=== PATIENT | male | born 1960 | race Caucasian/White ===

== ENCOUNTER → 2022-04-23 | Day surgery (SDC) | payer OTHER ==
[~2022-04-23] MED LIST: BUPIVACAIN-EPI 0.25%-1:200,000 30 ML VIAL SQ ONE; DEXAMETHASONE SOD PHOSPHATE 4 MG/ML 1 ML VIAL IV ONE; DEXAMETHASONE SOD PHOSPHATE 4 MG/ML 1 ML VIAL IV PRN; EPINEPHrine 1 MG/ML (MDV) 30 ML VIAL TOPICAL ONE; FAMOTIDINE 20 MG/2 ML VIAL IV PRN; FLUORESCEIN STRIPS 1 MG STRIP MISCELLANE ONE; HYDROmorphone 0.5 MG/0.5 ML SYRINGE IVP PRN; LACTATED RINGERS 1,000 ML IV ONE; LACTATED RINGERS 1,000 ML IV SCH; LIDOCAINE 1% (10MG/ML) FOR IV START INTRADERMA PRN; LIDOCAINE 1%-EPI 1:100,000 20 ML VIAL SUBMUCOSAL ONE; LIDOCAINE 2% INJ 20 MG/ML (2 ML VIAL) ONE; MIDAZOLAM 2 MG/2 ML VIAL IV PRN; MIDAZOLAM 2 MG/2 ML VIAL ONE; ONDANSETRON 4 MG/2 ML VIAL IVP ONE; OXYMETAZOLINE 0.05% NASL SPRAY 1 SPRAY BOTTLE ONE; PROPOFOL 10 MG/ML 20 ML VIAL IV ONE; ROCURONIUM 10 MG/ML (5 ML VIAL) IV ONE; SUCCINYLCHOLINE CHLORIDE 200 MG/10 ML VIAL IV ONE; fentaNYL (PF) 50 MCG/ML 2 ML AMP ONE
[2022-04-23 12:59] VITALS: TEMP 98.1
[2022-04-23] MEDS: OXYMETAZOLINE 0.05% NASL SPRAY 1 SPRAY BOTTLE EA NOSTRIL PRN ×4 (13:25→13:40)
--- NOTE | 2022-04-23 16:59 | P.OP ---
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 Patient was found to have chronic ethmoid sinusitis and maxillary sinusitis with polyps and mucoceles. The mucoceles has caused an erosion of the bone of the lamina papyracea the nose from the nasal cavity. In addition patient was found have a left middle ear effusion with nonfunctioning tube and a persistent mastoid fluid. Patient has failed maximal medical therapy and after long discussion we decided to proceed forward with functional endoscopic sinus surgery with removal of mucocele and polyps of the maxillary and ethmoid sinuses along with a left middle ear lavage and mastoid lavage and tube replacement. All risks, benefits, and alternative therapies were discussed in detail. Obtained and all questions were answered. Risks of bleeding, infection, penetration into the orbit and brain, anesthetic reaction, etc. etc. were explained. Consent was obtained and all questions were answered. Operative Findings: Patient was found have polyps and mucoceles the mucocele has caused bony erosion of the lamina papyracea bilaterally patient had chronic infectious material and the maxillary and ethmoid sinuses along with the left middle ear effusion nonfunctioning tube and mastoid infection. Description of Procedure: Patient was taken to the operative room and placed in the supine position. A general inhalation anesthetic was administered to the patient by mask and subsequently intubated with a cuffed endotracheal tube by the department of anesthesia and was followed throughout the entire case by the department of anesthesia The sphenopalatine ganglion lateral nasal wall middle turbinate inferior turbinates were injected with lidocaine and bupivacaine and epinephrine. 10 minutes were allowed wait for full vasoconstrictive effects to take place. We then entered the nose with a 0 Shearer deangelo scope and the entire procedure with a Shearer deangelo scope. We open up the maxillary sinuses underneath the middle turbinates and underneath the inferior turbinates. We entered the maxillary sinuses and we remove diseased tissue from the maxillary sinuses bilaterally. After the maxillary sinuses were opened both above and below the inferior turbinate under endoscopic visualization we then did a total ethmoidectomy and removed all ethmoid air cells. We encountered [place] polyps we encountered mucoceles bilaterally and we encountered bony erosion of the lamina propria. Polyps and mucoceles were removed and all ethmoid septations were removed both anteriorly and posteriorly. All diseased tissue was removed. We reinspected the surgical site. There is no signs of any penetration issues. Xerogel along with nasal pore was placed underneath the middle turbinate to control bleeding. Excellent hemostasis was obtained. We then paid attention to the left ear it was magnified with a Zeiss microscope utilizing a 250 mm magnification. The left ear was visualized and there was a tube present that was nonfunctioning and we remove the tube tympanostomy incision was made fluid was suctioned and a new tube was placed. The middle ear underwent a lavage with a Betadine and saline mixture. Excellent results were obtained. Follow-up will be in the office in 1 week for recheck. The patient is to contact me if any problems should arise.
[2022-04-23 17:02] VITALS: RESP 16
[2022-04-23 18:04] VITALS: BP 151/80; PULSE 77
== END | disposition home or self-care (01) ==
LOC: OR 12:31
PROVIDERS: ATTEND Otolaryngology
DX: J32.2 Chronic ethmoidal sinusitis (principal); H65.20 Chronic serous otitis media, unspecified ear; H70.10 Chronic mastoiditis, unspecified ear; J32.9 Chronic sinusitis, unspecified; J34.1 Cyst and mucocele of nose and nasal sinus
CPT/HCPCS: 88305; 31231; 69436; J0171; J2250; J0330; J1100; J0690; J2405; J3010; J2704; J2001